=== PATIENT | female | born 1970 | race Two or more races ===

== ENCOUNTER 2017-04-10 20:42 | Emergency (ER) | payer BC ==
[~2017-04-10] VITALS: Ht 175.3 cm; Wt 65.8 kg
[2017-04-10] MEDS ORDERED: BUPROPION HCL XL 300 MG TABLET (21:27)
[2017-04-10] MEDS ORDERED: SPIRONOLACTONE 50 MG TABLET (21:27)
--- NOTE | 2017-04-10 21:27 | NUR ---
Pt c/o right calf pain, 5-6/10, and slight swelling for about 10 days, concerned about DVT. Also c/o pain in right thigh, not as bad. PMS intact. Pt denies CP, SOB, dizziness, n/v, no other complaints, no distress noted.
[2017-04-10] MEDS ORDERED: LEXAPRO (21:28)
[2017-04-10] MEDS ORDERED: SYNTHROID (21:28)
--- NOTE | 2017-04-10 21:56 | NUR ---
Gave pt d/c instructions, verbalized understanding.
== END 2017-04-10 21:57 | disposition home or self-care (01) ==
LOC: ER 20:49
DX: M54.30 Sciatica, unspecified side (principal); M79.89 Other specified soft tissue disorders; M79.661 Pain in right lower leg
CPT/HCPCS: A4663